=== PATIENT | female | born 1975 | race Two or more races ===

== ENCOUNTER 2017-10-11 11:41 | Observation (INO) | payer BC ==
[~2017-10-11] VITALS: Ht 157.5 cm; Wt 74.4 kg
[2017-10-11 12:13] LABS: Basophils # (auto) 0.1 uL; Eosinophils # (auto) 0 uL; Lymphocytes # (auto) 1.6 uL
[2017-10-11 12:15] LABS: Basophils % (auto) 0.4 % (0.0-2.0); Hemoglobin 13.1 g/dL (12.2-16.2); Lymphocytes % (auto) 11.4 % (10.0-50.0); Mean Corpuscular Hemoglobin 26.5 pg (28.0-32.0); Mean Corpuscular Hgb Conc. 32.6 g/dL (32.0-36.0); Mean Corpuscular Volume 81.3 fL (80.0-100.0); Monocytes # (auto) 0.4 uL; Monocytes % (auto) 3.2 % (0.0-12.0); Neutrophils # (auto) 11.7 uL; Platelet Count (auto) 444 10^3/uL (140-450); Red Blood Cells 4.92 10^6/uL (4.0-5.20); Red Cell Distribution Width 14.9 % (11.8-14.3); White Blood Cell 13.8 10^3/uL (4.4-10.8)
[2017-10-11 12:34] LABS: Albumin 4.2 g/dL (3.4-5.0); BUN/Creatinine Ratio 18.8; Bilirubin, Total 0.3 mg/dL (0.2-1.0); Calcium 8.9 mg/dL (8.5-10.1); Potassium 4.1 mmol/L (3.5-5.1); Total Protein 8.1 g/dL (6.4-8.2)
[2017-10-11 13:01] LABS: Urine Bacteria NONE SEEN /hpf (None Seen); Urine Blood 2+ /uL (Negative); Urine Mucus FEW (None Seen); Urine Specific Gravity 1.022 (1.001-1.035); Urine WBC 201 /hpf (0 - 5)
[2017-10-11] MEDS ORDERED: SODIUM CHLORIDE 0.9% 1,000 ML IVB ONE (13:07)
[2017-10-11] MEDS ORDERED: KETOROLAC TROMETH 30 MG/ML 1ML VIAL IV ONE (13:15)
[2017-10-11] MEDS ORDERED: ONDANSETRON HCL 4 MG/2 ML VIAL IV ONE (13:15)
[2017-10-11 16:27] VITALS: BP 116/70
[2017-10-11] MEDS ORDERED: cefTRIAXone 1GM/10ml IVPUSH 10 ML IV ONE (16:30)
[2017-10-11] MEDS ORDERED: diphenhdrAMINE HCL 50 MG/1 ML VL ONE (16:42)
[2017-10-11] MEDS ORDERED: diphenhdrAMINE HCL 50 MG/1 ML VL IV ONE (17:00)
== END 2017-10-11 17:54 | disposition home or self-care (01) | DRG 392 ==
LOC: ER 11:41 → OVERFLOW 13:08 → ER 17:54
PROVIDERS: ADMIT Family Medicine; ATTEND Family Medicine
DX: K52.9 Noninfective gastroenteritis and colitis, unspecified (principal); M06.9 Rheumatoid arthritis, unspecified; N20.0 Calculus of kidney; Z88.1 Allergy status to other antibiotic agents; Z82.49 Family history of ischemic heart disease and other diseases of the circulatory system
CPT/HCPCS: 36415; 71045; 74176; 80053; 81001; 81025; 83690; 83735; 85025; 96361; 96374; 96375; 99285; G0378; J1200; J1885; J2405; J7030